=== PATIENT | male | born 1980 | race Caucasian/White ===

== ENCOUNTER 2022-05-02 12:05 | Emergency (ER) | payer BC, SELFPAY ==
--- NOTE | 2022-05-02 12:16 | ED.GENADULT ---
HPI - General Adult General Chief complaint: Upper Respiratory Infection Stated complaint: flu symptoms Time Seen by Provider: 05/02/22 12:14 Source: patient and RN notes reviewed Mode of arrival: ambulatory Limitations: no limitations History of Present Illness HPI narrative: 42 y/o male presented for c/o nausea, vomiting and diarrhea for 2 days. Symptoms resolved yesterday morning, then he developed cold chills last night and is concerned for flu. Denies abdominal pain, urinary complaints, flank pain or fever. Taking omeprazole. Denies sick contacts. Related Data Home Medications Medication Instructions Recorded Confirmed meloxicam 15 mg tablet mg 05/02/22 pantoprazole 40 mg tablet,delayed mg PO 05/02/22 release pantoprazole 40 mg tablet,delayed mg PO 05/02/22 release Allergies Allergy/AdvReac Type Severity Reaction Status Date / Time No Known Allergies Allergy Verified 08/26/17 12:43 Review of Systems Review of Systems: per HPI All systems reviewed & are unremarkable except as noted in HPI and below PMFSH Comments At time of signature, I have reviewed and agree with nursing past medical, surgical, social and family history unless otherwise noted. Please see nursing chart for further information. There is no relevant family history pertinent to the presenting complaint Exam Narrative: GENERAL: Well-appearing, and in no acute distress. EYES: EOMI. Conjunctivae normal. ENT: Mucous membranes pink and moist. CHEST: No respiratory distress. Clear to auscultation. HEART: Regular rate and rhythm. No murmur appreciated. Normal peripheral pulses. ABDOMEN: abd soft, nondistended, normal active bowel sounds. Nontender abdomen SKIN: Warm, dry, no rash. Capillary refill normal. Normal skin turgor. NEURO: No focal deficits. Alert and oriented x3. Course Course Emergency Course: Patient is aware of diagnosis, understands and agrees to treatment plan. Anticipatory guidance given. Patient agrees to follow-up as directed and is aware of reasons to seek care at the emergency department. Portions of this record may have been created with voice recognition software Level of Care: Express Care Visit Medical Decision Making MDM Narrative Medical decision making narrative: Flu negative. Pt is well appearing, tolerating PO. Symptoms not typical for emergent causes of abdominal etiology. Pt appears appropriate for outpt treatment and close f/u. Differential Diagnosis Differential Diagnosis: Consider gastroenteritis, GERD, bowel obstruction or perforation, cholecystitis, appendicitis, hernia, mesenteric ischemia, pancreatitis, peritonitis, AAA Discharge Plan Discharge Patient Disposition: Home, Self-Care Condition: Stable Instructions: Gastroenteritis (ED) Additional Instructions: Stay hydrated. Take small sips of fluid containing electrolytes frequently. Clear liquids (broth, jello, tea, sprite, pedialyte) Clyo foods (bananas, rice, applesauce, toast, crackers) You should go to the hospital if you experience persistent nausea and vomiting that does not resolve and does not allow you to tolerate any food or fluids, fevers, increasing abdominal pain, persistent diarrhea, dizziness, fainting, or for any other concerns. Prescriptions: No Action pantoprazole 40 mg tablet,delayed release (DR/EC) PO meloxicam 15 mg tablet pantoprazole 40 mg tablet,delayed release (DR/EC) PO Follow-up/Referrals: Henok,Wayne Purdy MD [Primary Care Provider] - Stand Alone Forms: Work/School Release IP Time of Disposition: 12:43
[2022-05-02 12:17] VITALS: BP 137/97; PULSE 74; RESP 18; TEMP 36.6; O2SAT 100
== END 2022-05-02 12:47 | disposition home or self-care (01) ==
PROVIDERS: Emergency Provider Nurse Practitioner Family; PCP Internal Medicine
DX: R11.2 Nausea with vomiting, unspecified (principal); R19.7 Diarrhea, unspecified; E78.00 Pure hypercholesterolemia, unspecified
CPT/HCPCS: 87804; 99203; G0463

== ENCOUNTER 2022-05-24 15:26 | Emergency (ER) | payer BC, SELFPAY ==
[2022-05-24 15:32] VITALS: BP 144/100; PULSE 95; RESP 14; TEMP 36.8; O2SAT 98
--- NOTE | 2022-05-24 15:40 | ED.URI ---
HPI - URI/Sore Throat General Chief Complaint: Upper Respiratory Infection Stated Complaint: Congestion/Abdominal Pain Time Seen by Provider: 05/24/22 15:41 Source: patient and RN notes reviewed History of Present Illness HPI Narrative: Patient is a 42-year-old male who presents to urgent care with complaints of fatigue, chills, head congestion and sore throat. Patient states that his symptoms started last night and they worsened today after he woke up from his night cleaner. Patient denies any known contact with illness. States that he is concerned about influenza. Denies any known fevers, nausea or vomiting. Patient has taken Advil and Tylenol. No other acute complaints. No acute distress noted. Patient aware of the plan of care. Some parts of this dictation were generated by voice recognition software and may contain typographical and/or grammatical inaccuracies. Related Data Home Medications Medication Instructions Recorded Confirmed meloxicam 15 mg tablet 15 mg DIRECTED 05/02/22 05/24/22 pantoprazole 40 mg tablet,delayed 40 mg PO DIRECTED 05/02/22 05/24/22 release atorvastatin 20 mg tablet 20 mg DIRECTED 05/24/22 05/24/22 Allergies Allergy/AdvReac Type Severity Reaction Status Date / Time No Known Allergies Allergy Verified 08/26/17 12:43 Review of Systems Review of Systems: CONSTITUTIONAL: Reports of chills EYES: Denies visual changes, redness, or discharge. ENT: Reports sore throat, head congestion CARDIOVASCULAR: Denies chest pain, palpitations, or edema. RESPIRATORY: Denies cough or dyspnea. GASTROINTESTINAL: Denies abdominal pain, nausea, vomiting, or diarrhea. GENITOURINARY: Denies dysuria or hematuria. SKIN: Denies rash or itching. MUSCULOSKELETAL: Denies back pain, joint pain. Reports body aches NEUROLOGIC: Denies headache, numbness, or weakness. All other systems reviewed are negative, except as documented in HPI. PMFSH Comments At the time of my signature, I reviewed and agree with the nursing past medical, surgical, social, and family history. There is no relevant family history pertinent to the patient complaint. Exam Narrative: GENERAL: This is a well-nourished, well-developed patient, in no apparent distress. HEAD: normocephalic, atraumatic. EYES: PERRL. Sclera clear/white. Vision is grossly intact. EARS: External ears normal, auditory canals clear and without drainage, TMs normal without perforation. Hearing grossly intact. NOSE: External nose normal with no obvious nasal discharge, nares without redness, no rhinorrhea. THROAT: Mucous membranes moist, posterior pharynx clear. Moderate postnasal drainage NECK: Neck supple, non-tender without lymphadenopathy, masses or thyromegaly. CARDIOVASCULAR: Regular rate and rhythm without murmurs, gallops, or rubs. RESPIRATORY: Clear to auscultation. Breath sounds equal bilaterally. No wheezes, rales, or rhonchi. SKIN: warm, intact with no suspicious lesions or rash, good texture and turgor. NEURO: awake, alert, and oriented to person, place and time. There were no obvious focal neurologic abnormalities. EXTREMITIES: No clubbing, cyanosis, or edema. Course Course Level of Care: Express Care Visit Vital Signs Vital signs: Vital Signs Temperature 98.3 F 05/24/22 15:32 Pulse Rate 95 05/24/22 15:32 Respiratory Rate 14 05/24/22 15:32 Blood Pressure 144/100 H 05/24/22 15:32 Pulse Oximetry 98 05/24/22 15:32 Oxygen Delivery Room Air 05/24/22 15:32 Temperature 98.3 F 05/24/22 15:32 Pulse Rate 95 05/24/22 15:32 Respiratory Rate 14 05/24/22 15:32 Blood Pressure 144/100 H 05/24/22 15:32 Pulse Oximetry 98 05/24/22 15:32 Oxygen Delivery Room Air 05/24/22 15:32 Reviewed- Patient is informed that they may have pre-hypertension or hypertension based on a blood pressure reading in the department. I recommend the patient call the primary care provider listed on their discharge instructions or a physician of
== END 2022-05-24 16:13 | disposition home or self-care (01) ==
PROVIDERS: Emergency Provider Nurse Practitioner Family
DX: J02.0 Streptococcal pharyngitis (principal); E78.00 Pure hypercholesterolemia, unspecified; K21.9 Gastro-esophageal reflux disease without esophagitis; Z86.16 Personal history of COVID-19
CPT/HCPCS: 87804; 87880; 99213; G0463

== ENCOUNTER 2023-01-05 12:49 | Emergency (ER) | payer BC, SELFPAY ==
--- NOTE | ~2023-01-05 | XR_ITS ---
EXAMINATION: XR knee RT min 4V DATE: 01/05/2023 13:10 INDICATION: Right knee pain TECHNIQUE: Four views of the right knee were obtained. COMPARISON: None. FINDINGS: Alignment is normal. No fracture or osteochondral lesion. There is mild tricompartmental os teoarthritis characterized by tiny marginal osteophytes. No joint effusion/synovitis. There appears to be soft tissue swelling of the lateral collateral ligament. IMPRESSION: 1. Apparent soft tissue swelling of the lateral collateral ligament without acute osseous abnormality identified. Reviewed, dictated and finalized at location B. IMPRESSION: 1. Apparent soft tissue swelling of the lateral collateral ligament without acu te osseous abnormality identified.
[2023-01-05 12:54] VITALS: BP 126/103; PULSE 88; RESP 16; TEMP 36.1; O2SAT 96
[2023-01-05 12:58] VITALS: BP 126/103; PULSE 88; RESP 16; TEMP 36.1; O2SAT 96
--- NOTE | 2023-01-05 13:30 | ED.LOWEXIN ---
HPI - Extremity Injury (Lower) General Chief Complaint: Extremity Injury, Lower Stated Complaint: Right Knee Painstat Time Seen by Provider: 01/05/23 13:31 Source: patient, RN notes reviewed and old records reviewed Mode of arrival: ambulatory Limitations: no limitations History of Present Illness HPI Narrative: 42 year old male who presents to [facility] care with complaints of right knee pain intermittently since last evening. He reports that he was working out doing upper body exercise and he had pain to the sides of his right knee and back of his knee, denies any pop to his knee or any swelling or shooting pain.. He states that he went to work on midnight shift and pain subsided. Today he states that he was playing with his dog and he wonders if he twisted knee and pain returned. He states when he got in his car he noted that the discomfort went across anterior aspect of his knee. Patient has steady gait reports no pain at present time no swelling noted or obvious deformity. MD complaint: knee injury Onset (ago): day(s) (1) Treatments prior to arrival: other (compression sleeve to knee) Related Data Home Medications Medication Instructions Recorded Confirmed meloxicam 15 mg tablet 15 mg DIRECTED 05/02/22 01/05/23 pantoprazole 40 mg tablet,delayed 40 mg PO DIRECTED 05/02/22 01/05/23 release atorvastatin 20 mg tablet 20 mg DIRECTED 05/24/22 01/05/23 Allergies Allergy/AdvReac Type Severity Reaction Status Date / Time No Known Allergies Allergy Verified 01/05/23 13:05 Review of Systems Review of Systems: CONSTITUTIONAL: Denies fever, chills, or sweats. CARDIOVASCULAR: Denies chest pain, palpitations, or edema. RESPIRATORY: Denies cough or dyspnea. SKIN: Denies rash or itching. Denies laceration or abrasions MUSCULOSKELETAL: Reports episodes of right knee pain on bilateral spect of knne an to back of knee and episode of radiation of pain anterior distal aspect of knee, presentno pain NEUROLOGIC: Denies numbness, or weakness. All systems reviewed & are unremarkable except as noted in HPI and below PMFSH Past Medical History Medical History (Updated 01/06/23 @ 19:57 by Lisa Rangel NP) COVID-19 GERD (gastroesophageal reflux disease) Surgical History Surgical History (Updated 01/06/23 @ 19:58 by Lisa Rangel NP) H/O hand surgery right finger injury middle History of breast lump/mass excision Social History Social History (Updated 01/06/23 @ 19:33 by Lisa Rangel NP) Smoking status: Never smoker Alcohol intake: current Alcohol use details: social Substance use type: does not use Gender identity (if verbalized by the patient): Male Comments At time of signature, agree with nursing past medical, surgical, social and family history. There is no relevant family history pertinent to the presenting complaint Exam Narrative: GENERAL: Well-appearing, well-nourished, and in no acute distress. HEAD: Normocephalic, atraumatic. EYES: PERRLA, conjunctivae clear NECK: Supple. CHEST: Speaks in full sentences. No respiratory distress.SAO2 96% on room air HEART: Regular rate and rhythm. Normal and equal peripheral pulses. EXTREMITIES: Right knee has normal strength and sensation, normal range of motion. No edema or ecchymosis. 5/5 strength with normal flexion and extension. Normal sensation with sensitivity to light touch and pain. No point tenderness noted on exam Drawer test normal no increase pain with varus or valgus manuevers.? ?No open wounds, no skin tenting, no devitalized tissue or atrophy, no trophic changes, no obvious deformity, alignment normal, nearby joints and structures intact. Distal pulses palpable and equal bilaterally, skin warm, dry, pink. Capillary refill less than 3 seconds. Course Course Emergency Course: Patient is aware of diagnosis, understands and agrees to treatment plan. Anticipatory guidance given. Patient agrees to follow-up as di
== END 2023-01-05 13:51 | disposition home or self-care (01) ==
PROVIDERS: Emergency Provider Registered Nurse; PCP Internal Medicine
DX: M25.561 Pain in right knee (principal); K21.9 Gastro-esophageal reflux disease without esophagitis; Z86.16 Personal history of COVID-19
CPT/HCPCS: 73564; 99213; G0463

== ENCOUNTER 2023-08-02 18:15 | Emergency (ER) | payer BC, SELFPAY ==
[2023-08-02 18:22] VITALS: BP 155/92; PULSE 77; RESP 16; TEMP 36.6; O2SAT 97
--- NOTE | 2023-08-02 19:11 | ED.GENADULT ---
HPI - General Adult General Chief complaint: Back Pain/Injury Stated complaint: Low Back Pain/ Abdominal Pain Time Seen by Provider: 08/02/23 19:11 Source: patient, RN notes reviewed and old records reviewed Mode of arrival: ambulatory Limitations: no limitations History of Present Illness HPI narrative: 43-year-old male to Express Care for complaint left lower back pain radiating to left flank. Patient denies any known injury, Fever,history of kidney infections, urinary changes, bowel changes. Patient states he may strained at the gym. Patient denies any pertinent medical history or allergies. Patient in no acute distress. Related Data Home Medications Medication Instructions Recorded Confirmed meloxicam 15 mg tablet 15 mg DIRECTED 05/02/22 01/05/23 pantoprazole 40 mg tablet,delayed 40 mg PO DIRECTED 05/02/22 01/05/23 release atorvastatin 20 mg tablet 20 mg DIRECTED 05/24/22 01/05/23 Allergies Allergy/AdvReac Type Severity Reaction Status Date / Time No Known Allergies Allergy Verified 08/02/23 18:18 Review of Systems Review of Systems: All systems reviewed & are unremarkable except as noted in HPI and below Constitutional: Constitutional: Reports no additional constitutional complaints Eyes: Eyes: Reports no additional eye complaints ENT: Reports system reviewed and no additional complaints, except as documented Cardiovascular: Cardiovascular: Reports no additional cardiovascular complaints, Denies chest pain and Denies dyspnea Respiratory: Respiratory: Reports no additional respiratory complaints, Denies cough and Denies dyspnea Gastrointestinal: Gastrointestinal: Reports as per HPI, Denies change in stool character, Denies constipation, Denies diarrhea, Denies nausea and Denies vomiting Genitourinary: Genitourinary: Reports as per HPI, Denies oliguria, Denies urinary frequency, Denies urinary hesitancy, Denies urinary incontinence and Denies urinary urgency Musculoskeletal: Musculoskeletal: Reports as per HPI, Reports back pain ( left lower), Denies numbness, Denies stiffness and Denies tingling Neurologic: Reports system reviewed and no additional complaints, except as documented Psychiatric: Psychiatric: Reports no additional psychiatric complaints PMFSH Past Medical History Medical History COVID-19 GERD (gastroesophageal reflux disease) Surgical History Surgical History H/O hand surgery right finger injury middle History of breast lump/mass excision Social History Social History Smoking status: Never smoker Alcohol intake: current Alcohol use details: social Substance use type: does not use Gender identity (if verbalized by the patient): Male Comments At the time of my signature, I reviewed and agree with the nursing past medical, surgical, social, and family history. There is no relevant family history pertinent to the patient complaint. Exam Const: General: cooperative, healthy appearing, comfortable, no acute distress, alert and well nourished Nutritional Appearance: well nourished Orientation/consciousness: patient oriented x3 Limitations: no limitations HENMT: Head: normal to inspection Ears: external ears normal Face/Nose/Sinus: Normal external nose present, Normal nares present, normal facial exam, No erythema and No edema Face and sinus: normal facial exam, no erythema and no edema Mouth: Yes Normal oral and palatal mucosa present Eyes: General: appearance normal, both eyes and all related structures Neck: Neck: normal visual inspection, full ROM and no meningeal signs Lymphatic: no lymphadenopathy noted and no lymphedema noted Chest: Chest palpation & inspection: normal inspection of the chest Resp: Effort & Inspection: normal respiratory effort and able to speak
== END 2023-08-02 19:29 | disposition home or self-care (01) ==
PROVIDERS: Emergency Provider Nurse Practitioner Family; PCP Internal Medicine
DX: S39.012A Strain of muscle, fascia and tendon of lower back, initial encounter (principal); X58.XXXA Exposure to other specified factors, initial encounter; K21.9 Gastro-esophageal reflux disease without esophagitis; Z86.16 Personal history of COVID-19
CPT/HCPCS: 99212; G0463

== ENCOUNTER 2023-09-20 14:37 | Emergency (ER) | payer BC, SELFPAY ==
--- NOTE | ~2023-09-20 | XR_ITS ---
EXAMINATION: XR knee RT min 4V DATE: 09/20/2023 15:05 INDICATION: Right knee injury. TECHNIQUE: 5 views of right knee were obtained. COMPARISON: Right knee radiographs 01/05/2023 FINDINGS: Bone alignment is normal. No fracture. There is mild tricompartmental osteoarthritis. No kn ee joint effusion. IMPRESSION: 1. Mild right knee osteoarthritis. Reviewed, dictated and finalized at location A.
[2023-09-20 14:44] VITALS: BP 141/86; PULSE 99; RESP 20; TEMP 36.8; O2SAT 95
--- NOTE | 2023-09-20 14:52 | ED.GENADULT ---
HPI - General Adult General Chief complaint: Extremity Injury, Lower Stated complaint: Right knee injury Time Seen by Provider: 09/20/23 14:53 Source: patient, RN notes reviewed and old records reviewed Mode of arrival: ambulatory Limitations: no limitations History of Present Illness HPI narrative: 43 year old male who presents to [facility] care with complaints of cleaning out his gutters today and when he stepped off the ladder he either twisted his right knee or hyperextended it. Patient reports pain to the anterior and medial aspect of his right knee and states that it feel tight and swollen behind his knee. Patient reports increased discomfort when ambulating and bending knee. Patient has not taken any OTC medications for his discomfort. MD complaint: right knee pain and swelling Onset (ago): hour(s) (this afternoon) Location: right and lower extremity (knee) Severity scale (1-10): 4 Quality: aching and other (feels tight to back of knee) Exacerbating factors: movement and other (ambulating) Treatments prior to arrival: none Related Data Home Medications Medication Instructions Recorded Confirmed meloxicam 15 mg tablet 15 mg PO DIRECTED 05/02/22 09/20/23 pantoprazole 40 mg tablet,delayed 40 mg PO DIRECTED 05/02/22 09/20/23 release atorvastatin 20 mg tablet 20 mg PO DIRECTED 05/24/22 09/20/23 Allergies Allergy/AdvReac Type Severity Reaction Status Date / Time No Known Allergies Allergy Verified 08/02/23 18:18 Review of Systems Review of Systems: CONSTITUTIONAL: Denies fever, chills, or sweats. EYES: Denies visual changes, redness, or discharge. ENT: Denies rhinorrhea, congestion, sore throat, or otalgia. CARDIOVASCULAR: Denies chest pain, palpitations, or edema. RESPIRATORY: Denies cough or dyspnea. GASTROINTESTINAL: Denies abdominal pain, nausea, vomiting, or diarrhea. GENITOURINARY: Denies dysuria or hematuria. SKIN: Denies rash or itching. MUSCULOSKELETAL: Denies back pain, positive for right knee pain, or myalgia. NEUROLOGIC: Denies headache, numbness, or weakness. PSYCHIATRIC: Denies anxiety or depression. All systems reviewed & are unremarkable except as noted in HPI and below PMFSH Past Medical History Medical History COVID-19 GERD (gastroesophageal reflux disease) Hyperlipidemia Surgical History Surgical History H/O hand surgery right finger injury middle History of breast lump/mass excision Social History Social History Smoking status: Never smoker Alcohol intake: current Alcohol use details: social Substance use type: does not use Gender identity (if verbalized by the patient): Male Comments At time of signature, agree with nursing past medical, surgical, social and family history. There is no relevant family history pertinent to the presenting complaint Exam Narrative: GENERAL: Well-appearing, well-nourished, and in no acute distress. HEAD: Normocephalic, atraumatic. EYES: PERRLA and EOMI. ENT: Nares clear, no rhinorrhea or epistaxis. Mucous membranes moist. NECK: Supple.no lymphadenopathy CHEST: Clear to auscultation. No respiratory distress.SAO2 95% on room air HEART: Regular rate and rhythm. No murmur heard. Normal peripheral pulses. ABDOMEN: Soft, nontender, nondistended, normal active bowel sounds. EXTREMITIES: Normal range of motion. No edema .Exception noted to right knee with discomfort to anterior and medial aspect of right knee with some tightness of posterior knee verbalized, able to bend knee fully, sensation and circulation intact to right leg. SKIN: Warm, dry, no rash. NEURO: No focal deficits. Alert and oriented x3. Course Course Emergency Course: Patient is aware of diagnosis, understands and agrees to treatment plan.? Anticipatory guidance given.? Patient agrees to follow-u
== END 2023-09-20 15:50 | disposition home or self-care (01) ==
PROVIDERS: Emergency Provider Registered Nurse; PCP Internal Medicine
DX: S86.911A Strain of unspecified muscle(s) and tendon(s) at lower leg level, right leg, initial encounter (principal); X50.9XXA Other and unspecified overexertion or strenuous movements or postures, initial encounter; K21.9 Gastro-esophageal reflux disease without esophagitis; E78.5 Hyperlipidemia, unspecified; Z86.16 Personal history of COVID-19
CPT/HCPCS: 73564; 99213; G0463

== ENCOUNTER 2025-01-01 16:22 | Emergency (ER) | payer BC, SELFPAY ==
--- OUTSIDE RECORDS SUMMARY | 2025-01-01 16:27 | XMS_ITS | Clinical Summary ---
Author Organization [facility] A Address [address] [place] [address] Care Team Providers Care Adult Basic Education Instructor Name Role Phone Wayne Whiting MD Primary Care Provider Allergies No known active allergies Medications pantoprazole DR (PROTONIX) 40 mg EC tablet TAKE 1 TABLET BY MOUTH EVERY DAY 90 tablet 3 3 Active atorvastatin (LIPITOR) 20 mg tablet TAKE 1 TABLET BY MOUTH DAILY TO LOWER CHOLESTEROL 90 tablet 3 3 Active meloxicam (MOBIC) 15 mg tablet TAKE 1 TABLET (15 MG TOTAL) BY MOUTH DAILY THIS REPLACES DICLOFENAC 90 tablet 3 4 Active testosterone propionate, bulk, powder 0 4 Active metroNIDAZOLE (FLAGYL) 500 mg tablet TAKE 1 TABLET BY MOUTH TWICE A DAY FOR 10 DAYS 20 tablet 5 Active Active Problems Problem Noted Date Diagnosed Date COVID-19 virus infection 08/24/2021 Snoring 12/13/2020 Mixed hyperlipidemia 12/08/2019 Gastroesophageal reflux disease without esophagi tis 06/25/2017 Assessment & Plan (10/27/2019 11:11 AM CDT): Asymptomatic at this time given recent use of ibuprofen. Continue to monitor with OTC NSAID use and medrol dose pack. Cont daily prontonix and pepcid and sx to report to office provided. Assessment & Plan (03/04/2019 12:22 PM DRAWBENCH OPERATOR): Continue Protonix daily in the morning Start Pepcid at bedtime Call if no improvement in 8 weeks for GI referral LPR discussed and Handout provided Assessment & Plan (06/25/2017 4:30 PM DRAWBENCH OPERATOR): Stable. Refill Protonix 20 mg q.day recommended dietary modifications as well. Follow up in 6 months regarding condition Resolved Problems Problem Noted Date Diagnosed Date Resolved Date Viral URI with cough 01/23/2020 020 Assessment & Plan (01/23/2020 11:29 AM CDT): Recommending supportive therapy for suspected viral URI. Given his sx and contact with somewhat ill, sister and uncertainty of COVID -19, recommended COVID -19 testing via ambulatory collection testing. Called over to the [facility] who is able to swab in today to avoid for the delay in diagnosis. Pt was advised to self-isolate/quarantine at home for 10 days after symptom onset, afebrile for 24 hours without use of antipyretics in the interim. Further direction pending results of COVID -19 testing and determination to return back to work. Continuing to practice social distancing once returning back to work, released from quarantine was recommended. Right anterior shoulder pain 10/27/2019 10/27/2019 Assessment & Plan (10/27/2019 11:16 AM CDT): No acute trauma indicating need for acute imaging. Neurovascularly intact. Gradual improvement sx over the recent days with analgesics. Pt does endorse persistent dull pain recommending additional pain relief. Recommending tapering corticosteroids with food, Cnt. With heat, ice, Voltaren gel and p.r.n. use of ibuprofen or naproxen. Consultation to PT determine if there is any concern with possible bicep tear and certainly will consider consultation to orthopedist for ultrasound or MRI with ongoing sx. Neck pain on right side 06/25/201711/28 Assessment & Plan (06/25/2017 4:30 PM DRAWBENCH OPERATOR): Uncertain of etiology at this time if it is some kind of lymphadenopathy am unable palpate versus some kind of sternocleidomastoid inflammation however were going to start with a soft tissue x-ray of neck and certainly if symptoms do not seem to improve in the imaging is normal, will consider an ultrasound of the right side of neck to look further into what is going on. More to come after neck x-ray imaging is completed BMI 32.0-32.9,adult 02/22/2017 06/25/19 18 Assessment & Plan (02/22/2017 2:29 PM CDT): Recommended patient to continue to increase heart healthy diet with adequate fruits, vegetables, and plenty of water along with mild-moderate daily exercise as tolerated. Chronic left shoulder pain 02/22/2017 0 08/29/2018 Assessment & Plan (02/22/2017 2:58 PM CDT): I advised patient that up on we should go ahead and try some anti-inflammatories [id number] which include naproxen along with application of heat certainly some stretching exercises would also be advised. Considering a x-ray and physical therapy did not determine the etiology causing his pain or assist with pain alleviation, I recommended MRI of left shoulder. Patient was strongly advised to continue with other treatment management was previously advised and will follow up with him after completion of MRI of left shoulder. Left lower quadrant pain 02/10/201505/2018 Overview (08/04/2016): Left lower quadrant pain Low back pain 09/13/2013 12/13/2020 Overview (08/03/2016): LUMBAGO Degeneration of intervertebral disc 09/13/2013 08/29/2018 Overview (08/04/2016): Degenerative disk disease Benign paroxysmal positional vertigo 09/10/2013 08/29/2018 Overview (08/04/2016): BPPV (benign paroxysmal positional vertigo) Immunizations Immunization Administration Dates Next Due Influenza, Quadrivalent, Spl it, Preservative Free, Intradermal 04/03/2016,03/29/2015 Influenza, Quadrivalent, Spl it, Preservative Free, Intramuscular 04/13/2023,05/18/2020,02/12/2018 Influenza, Trivalent, IM (MDV) 05/04/2012 Influenza, Trivalent, Preser vative Free, Intramuscular 01/28/2024 Influenza, Trivalent, Recomb inant, Egg Free, Preservative Free, Antibiotic Free, IM (FLUBLOK) 03/02/2014 Influenza, Unspecified 03/07/2022(Deferr ed: Patient Refused),12/13/2020(Deferred: Patient Refused),05/18/2020(Deferred: Patient Refused),11/29/2019(Deferred: Patient Refused),01/28/2019(Deferred: Patient Refused),01/28/2019(Deferred: Patient Refused),01/24/2019(Deferred: Patient Refused),01/01/2019(Deferred: Patient Refused),12/12/2018(Deferred: Not available from shield operator),01/28/2018(Deferred: Patient Refused) Pfizer SARS-CoV-2 Monovalent Vaccination (12+ Yrs) PURPLE 10/08/2020,09/17/2020 Surgical History Surgery Date Site/Laterality Comments OTHER SURGICAL HISTORY 2009 gynecomastia: R breast tissue removed OTHER SURGICAL HISTORY repair of severe laceration to right middle finger Medical History Medical History Date Comments Hx Other Medical gynecomastia Family History Medical History Relation Name Comments Other Mother Mitral Valve Pr oplase; Relation Name Status Comments Mother Social History Tobacco Use Types Packs/Day Years Used Date Smoking Tobacco: Never Smokeless Tobacco: Never Tobacco Cessation:Counseling Given: Not Answered Alcohol Use Standard Drinks/Week Comments Yes 0 (1 standard drink = 0.6 oz pur e alcohol) AUDIT-C Answer Date Recorded Q1: How often do you have a drink containing alc ohol? Monthly or less 01/28/2024 Q2: How many drinks containi ng alcohol do you have on a typical day when you are drinking? 3 or 4 01/28/2024 Q3: How often do you have si x or more drinks on one occasion? Never 01/28/2024 PHQ-2 Answer Date Recorded PHQ-2 Total Score (If total score is 3 or more points, staff should administer the PHQ-9) 0 04/28/2024 Personal Safety Answer Date Recorded Have you ever been in or are you currently in a harmful physical or emotional relationship or is someone making you feel afraid or unsafe? Denies 10/11/2023 Sex and Gender Information Value Date Recorded Sex Assigned at Not on file Legal Sex Male 2:42 PM DRAWBENCH OPERATOR Gender Identity Male 01/04/2021 10:49 AM CDT Sexual Orientation Straight 01/04/2021 10 :49 AM CDT Obstetrics History Last Filed Vital Signs Vital Sign Reading Time Taken Comments Blood Pressure 132/84 04/28/2024 3:31 PM DRAWBENCH OPERATOR Pulse 111 04/28/2024 3:31 PM DRAWBENCH OPERATOR Temperature 36.6 C (97.8 F) 04/28/2024 3:31 PM DRAWBENCH OPERATOR Respiratory Rate 16 04/28/2024 3:31 PM DRAWBENCH OPERATOR Oxygen Saturation 95% 04/28/2024 3:31 PM DRAWBENCH OPERATOR Inhaled Oxygen Concentration - - Weight 121.1 kg (267 lb) 04/28/2024 3:31 PM DRAWBENCH OPERATOR Height 182.9 cm (6') 04/28/2024 3:31 PM DRAWBENCH OPERATOR Body Mass Index 36.21 04/28/2024 3:31 PM DRAWBENCH OPERATOR Plan of Treatment Health Maintenance Due Date Last Done Comments Hepatitis C Screening 1980 DTaP/Tdap/Td Vaccine (1 - Tdap) 1991 Varicella Vaccines (1 of 2 - 13+ 2-dose series) 1993 Hepatitis B Screening 1998 HPV Vaccines (1 - 3-dose SCDM series) 2007 Covid-19 Vaccine ( season) 2024 10/08/2020, 09/17/2020 Influenza Vaccine (#1) 2024 , 04/13/2023, 05/18/2020, Additional history exists Depression Screening 04/28/2025 04/28/2024, 01/28/2024, 04/13/2023, Additional history exists Regular Well Visit/Exam 18-64 04/28/2025 04/28/2024, 04/13/2023, 12/13/2020, Additional history exists Pneumococcal vaccine <65 Aged Out No longer eligible based on patient's age to complete this topic Insurance [facility] Care Teams Adult Basic Education Instructor Relationship Specialty Start Date End Date Wayne Whiting MD PCP - General 07/28/16
[2025-01-01 16:30] VITALS: BP 146/99; PULSE 86; RESP 16; TEMP 36.2; O2SAT 99
--- NOTE | 2025-01-01 17:11 | ED_ITS ---
HPI - URI/Sore Throat General Chief Complaint: Upper Respiratory Infection Stated Complaint: Sore Throat/Nasal Congestion/Fever Time Seen by Provider: 01/01/25 17:11 Source: patient, RN notes reviewed and old records reviewed Mode of arrival: ambulatory Limitations: no limitations History of Present Illness HPI Narrative: 44-year-old male presents to the [facility] with complaints of sore throat, nasal congestion and feeling feverish. Symptoms started 2 days ago. Has been taking Tylenol Motrin Related Data Allergies Allergy/AdvReac Type Severity Reaction Status Date / Time No Known Allergies Allergy Verified 08/02/23 18:18 Review of Systems Review of Systems: All systems reviewed & are unremarkable except as noted in HPI and below Constitutional: Constitutional: Reports no additional constitutional complain ts ENT: Reports as per HPI Cardiovascular: Cardiovascular: Reports no additional cardiovascular complaints, Denies chest pain and Denies dyspnea Respiratory: Respiratory: Reports no additional respiratory complaints, Denies chest congestion, Denies cough and Denies dyspnea Musculoskeletal: Musculoskeletal: Reports no additional musculoskeletal complaints Integumentary/Breasts: Skin/Breast: Reports system reviewed and no additional complaints, except as docu PMFSH Past Medical History Medical History Hyperlipidemia COVID-19 GERD (gastroesophageal reflux disease) Surgical History Surgical History History of breast lump/mass excision H/O hand surgery right finger injury middle Social History Social History Smoking status: Never smoker Alcohol intake: current Alcohol use details: social Substance use type: does not use Gender identity (if verbalized by the patient): Male Comments At the time of my signature, I reviewed and agree with the nursing past medical, surgical, social, and family history. There is no relevant family history pertinent to the patient complaint. Exam Const: General: cooperative, healthy appearing, comfortable, no acute distress, well developed, alert and well nourished Nutritional Appearance: well nourished Orientation/consciousness: patient oriented x3 Limitations: no limitations HENMT: Head: normal to inspection Ears: hearing grossly normal bilaterally, external ears normal, TM's normal bilaterally, EAC's normal, mastoids normal and no periauricular adenopathy Mouth: Yes Normal oral and palatal mucosa present, Yes lip normal, Yes tongue normal and Yes moist mucous membranes Throat: posterior oropharynx normal, uvula midline and no uvular edema Eyes: General: appearance normal, both eyes and all related structures Al ignment and Position: alignment normal Neck: Neck: normal visual inspection, full ROM, no lymphadenopathy and no meningeal signs Chest: Chest palpation & inspection: normal inspection of the chest Resp: Effort & Inspection: normal respiratory effort and able to speak in complete sentences Auscultation: clear to auscultation bilaterally, no crackles, no rales, no rhonchi and no wheezes Cardio: Rate: regular rate Skin: General skin exam: normal color and no rashes or lesions noted Neuro: General: patient oriented x3, gait normal, moves all extremities and no meningeal signs Cognition (Neuro): normal cognition Speech: normal speech Gait exam (Neuro): Normal gait present Extrem: General: normal to inspection, full ROM, capillary refill normal and normal gait Psych: Appearance: grossly normal and well kempt Mental Status: mental status grossly normal Speech and movement: Normal speech and movement present and Clear speech present Affect: normal affect Attitude: cooperative Course Course Level of Care: Express Care Visit Vital Signs Vital signs: Vital Signs Temperature 97.1 F L 01/01/25 16:30 Pulse Rate 86 01/01/25 16:30 Respiratory Rate 16 01/01/25 16:30 Blood Pressure 146/99 H 01/01/25 16:30 Pulse Oximetry 99 01/01/25 16:30 Oxygen Delivery Room Air 01/01/25 16:30 Temperature 97.1 F L 01/01/25 16:30 Pulse Rate 86 01/01/25 16:30 Respiratory Rate 16 01/01/25 16:30 Blood Pressure 146/99 H 01/01/25 16:30 Pulse Oximetry 99 01/01/25 16:30 Oxygen Delivery Room Air 01/01/25 16:30 Reviewed MDM - URI/Sore Throat MDM Narrative Medical decision making narrative: Patient sitting comfortably in exam. Patient is nontoxic, vitals stable. Patient presents with 2 day history of URI symptoms. Patient is COVID positive. No acute findings noted on exam. Patient is appropriate for outpatient treatment with close follow-up Discharge instructions reviewed with patient, as well as provided in writing per nursing staff. The instructions also include specific and strict return/GO TO THE ER as well as f/u information. All questions have been answered, and the patient deny any further questions with discharge and discharge plan. Some parts of this dictation were generated by voice recognition software and may contain typographical and/or grammatical inaccuracies. Differential Diagnosis Differential diagnosis: Likely upper respiratory infection, otitis media, sinusitis, viral infection and influenza Lab Data Labs: Lab Results 01/01/25 Range/Units 17:16 POC Influenza A Ag Negative (Negative) POC Influenza B Ag Negative (Negative) POC SARS CoV-2 Ag Positive (Negative) POC Grp A Strep Screen Negative (Negative) Reviewed Critical Care Time Critical Care Time Critical Care Time: No Discharge Plan Discharge Clinical Impression: COVID-19 Patient Disposition: Home Condition: Stable Instructions: Antibiotic Form, COVID-19 (Coronavirus Disease 2019) (ED) Additional Instructions: Your rapid strep swab was negative today at [facility]. Your rapid COVID test was positive Your rapid flu test was negative Your symptoms are due to a viral illness, which is not treated with antibiotics. Typically viral infections last 7-10 days, can linger for couple of weeks. It is very important to treat your symptoms. Drink plenty of water, Gatorade, Pedialyte, ice pops or Jell-O. -Alternate Tylenol and Motrin per package directions for fever or pain. You can alternate every 4 hours -Antihistamine medication such as Zyrtec/Claritin/Cher during the day can help improve symptoms. -doing daily nasal irrigations can help relieve pressure your sinuses. Things like a Neti pot -Use Flonase twice a day for 5 days then daily to help reduce the inflammation and dry up your sinuses. -You can also use Mucinex. Be sure to drink plenty of water with this medication at least 8 ounces with every dose and it is important to drink 8 to 10 glasses of water per day. Water is a natural decongestant -Eat and drink things that are easy to swallow, like tea or soup, or popsicles. -Oral rinses such as: Salt water gargles and/or may use topical anesthetic (eg. Chloraseptic spray) or lozenges to relieve dryness or throat pain). -Frequent hand washing or hand hospice clinical supervisor is one of the best ways to prevent spread of infection. -Using a vaporizer or humidifier at night will also help thin secretions and help with coughing up phlegm. -Follow up with primary care provider in 7-10 days if condition is not improving - For new or worsening symptoms go directly to the nearest ER Patient Language: Vietnamese Follow-up/Referrals: Henok,Wayne Purdy MD [Primary Care Provider] - 1 Week Stand Alone Forms: Work/School Release IP Time of Disposition: 17:16
[2025-01-01 17:18] LABS: EDCOVIDSCREEN Positive (Negative); EDINFLUASCREEN Negative (Negative); EDINFLUBSCREEN Negative (Negative); EDSTREPNEGPOS1 Negative (Negative)
== END 2025-01-01 17:20 | disposition home or self-care (01) ==
PROVIDERS: Emergency Provider Nurse Practitioner; PCP Internal Medicine
DX: U07.1 COVID-19 (principal); E78.5 Hyperlipidemia, unspecified
CPT/HCPCS: 87426; 87804; 87880; 99212; G0463